=== PATIENT | male | born 1960 | race Caucasian/White ===

== ENCOUNTER 2017-06-11 17:03 | Outpatient (CLI) | payer BC | END 2017-06-11 17:04 | disposition home or self-care (01) | LOC: BICRAD 17:03 | PROVIDERS: ATTEND Family Medicine | DX: M25.571 Pain in right ankle and joints of right foot (principal); M77.31 Calcaneal spur, right foot ==

== ENCOUNTER 2020-05-25 09:36 | Outpatient (CLI) | payer BC ==
--- NOTE | 2020-05-25 11:15 | RAD ---
RIGHT FOOT: HISTORY: Puncture wound right foot. FINDINGS: There is an 8 mm enthesophyte from the plantar calcaneus. Tarsals otherwise unremarkable. There are mild degenerative changes of the intertarsal joints. Mild dorsal spurring is seen at the talonavicular. Mild degenerative change at the tibiotalar joint. Mi nimal degenerative change at the tarsometatarsals. The MTP and IP joints are unremarkable. No acute osseous lesion. No soft tissue abnormality. IMPRESSION: Degenerative changes as described. No acute process. POS: AGW
== END 2020-05-25 09:37 | disposition home or self-care (01) ==
LOC: BICRAD 09:36
PROVIDERS: ATTEND Family Medicine
DX: S91.031A Puncture wound without foreign body, right ankle, initial encounter (principal); M19.071 Primary osteoarthritis, right ankle and foot

== ENCOUNTER 2021-04-16 14:23 | Emergency (ER) | payer BC ==
[2021-04-17 12:21] LABS: SARS-CoV-2 PCR by NAA Not Detected (NotDetected)
== END 2021-04-16 17:15 | disposition home or self-care (01) ==
LOC: ERS 14:23
DX: J06.9 Acute upper respiratory infection, unspecified (principal); Z20.822 Contact with and (suspected) exposure to COVID-19
CPT/HCPCS: 87804; 93005; U0003; U0005

== ENCOUNTER 2021-06-08 14:54 | Outpatient (CLI) | payer BC | END 2021-06-08 14:55 | disposition home or self-care (01) | LOC: BICRAD 14:54 | PROVIDERS: ATTEND Family Medicine | DX: R05.9 Cough, unspecified (principal) | CPT/HCPCS: 71046 ==

== ENCOUNTER 2022-05-02 10:23 | Outpatient (CLI) | payer BC | END 2022-05-02 10:24 | disposition home or self-care (01) | LOC: BICRAD 10:23 | PROVIDERS: ATTEND Family Medicine | DX: M25.531 Pain in right wrist (principal) ==

== ENCOUNTER 2024-01-30 09:10 | Outpatient (CLI) | payer BC | END 2024-01-30 09:11 | disposition home or self-care (01) | LOC: ULT 09:10 | PROVIDERS: ATTEND Family Medicine | DX: M25.562 Pain in left knee (principal); M71.22 Synovial cyst of popliteal space [Baker], left knee | CPT/HCPCS: 76999 ==